=== PATIENT | male | born 1975 | race Caucasian/White ===

== ENCOUNTER → 2021-06-12 | Outpatient (CLI) | payer OTHER ==
[~2021-06-12] VITALS: Ht 193 cm; Wt 104.3 kg
[~2021-06-12] MED LIST: ADDERALL 20 MG20 MG PO; ADVAIR 100-501 EACH; BACTRIM DS TAB1 EACH PO; CILOXAN5 ML OP; MULTI VITAMIN1 EACH PO; NORCO 5-325 TA1 EACH PO; VENTOLIN HFA 1818 GM INH
--- NOTE | 2021-06-14 08:12 | P ---
[facility] [place] [address] PROCEDURE REPORT Name: KOLE ALTAMIRANO Room #: REG [facility]#: [id number] Admission: 06/12/21 Attend Phys: Osman Sharpe Discharge: Date of : 79 Report #: [id number] THIS REPORT FOR: cc: Loki Jorge MD, Neal A. MD McElhinney, Christian C. MD ~ cc: Loki Jorge MD DATE OF SERVICE: 06/12/2021 PROCEDURE PERFORMED: Upper endoscopy with biopsies. HISTORY OF PRESENT ILLNESS: The patient is a 45-year-old male with a history of gastroesophageal reflux disease, currently taking Prilosec on a daily basis. He also takes Excedrin most days. He does report intermittent heartburn. He denies any nausea, vomiting or dysphagia. Reason for endoscopy today is anemia. I do not have a copy of his recent labs. He denies any obvious bright red blood per rectum or melena. Plan is for EGD and colonoscopy today. DESCRIPTION OF PROCEDURE: The risks and benefits of the procedure were explained to the patient, those risks including but not limited to bleeding, perforation and the risk of sedation. He understood these risks and gave informed consent. Sedation was given using propofol per Anesthesia. Next, using a standard Olympus upper endoscope, the scope was placed in the patient's mouth and advanced under direct vision through the esophagus, stomach and into the second portion of the duodenum. The larynx was normal in appearance. The upper and mid esophagus were normal. In the distal esophagus, grade A erosive esophagitis was noted. 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 Biopsies were obtained. The gastric mucosa was normal in the fundus and body. A mild gastritis was noted in the antrum. No evidence of ulcerations or erosions. No evidence of bleeding throughout the exam today. Biopsies were obtained to rule out the possibility of H. pylori. The pylorus was normal and patent. The duodenal bulb, first and second portion were normal. Biopsies were obtained to rule out the possibility of celiac sprue. The scope was then withdrawn and the procedure terminated. The patient tolerated the procedure well. IMPRESSION: 1. Grade A erosive esophagitis. 2. 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 3. Mild gastritis. 4. Otherwise, normal upper endoscopy. RECOMMENDATIONS: 1. Await biopsy results. 2. Would recommend changing Prilosec daily to b.i.d. dosing. 3. We will proceed with colonoscopy next today. [address] [address] PROCEDURE REPORT Name: KOLE ALTAMIRANO Jimmy Room #: REG [facility] José Miguel#: [id number] Admission: 06/12/21 Attend Phys: Osman Sharpe Discharge: Date of : 79 Report #: [id number] Thank you for allowing me to participate in his care. <ELECTRONICALLY SIGNED> By: Osman Loja MD 06/14/21 0812 [id number] [id number] Osman Loja MD /nt
--- NOTE | 2021-06-14 08:12 | P ---
[facility] [place] [address] PROCEDURE REPORT Name: KOLE ALTAMIRANO Room #: REG [facility]#: [id number] Admission: 06/12/21 Attend Phys: Osman Sharpe Discharge: Date of : 79 Report #: [id number] THIS REPORT FOR: cc: Loki Jorge MD, Neal A. MD McElhinney, Christian C. MD ~ cc: Loki Jorge MD DATE OF SERVICE: 06/12/2021 PROCEDURE PERFORMED: Colonoscopy. HISTORY OF PRESENT ILLNESS: The patient is a 45-year-old male with a history of anemia. Denies any obvious bright red blood per rectum or melena. No previous history of colonoscopy. No family history of colon cancer or inflammatory bowel disease. DESCRIPTION OF PROCEDURE: The risks and benefits of the procedure were explained to the patient, those risks including but not limited to bleeding, perforation and the risk of sedation. He understood these risks and gave informed consent. Sedation was given using propofol per anesthesia. Next, a digital rectal exam was initially performed, which was normal. Next, using a standard Olympus colonoscope, the scope was placed in the patient's anus and advanced under direct vision to the cecum. The overall prep was excellent. The cecum and ileocecal valve were normal in appearance. Terminal ileum was intubated and normal in appearance. Ascending, transverse, descending and sigmoid colon were all normal. The rectal mucosa was normal. On retroflexion, small nonbleeding internal hemorrhoids were noted. The scope was then withdrawn and the procedure terminated. The patient tolerated the procedure well. IMPRESSION: 1. Small nonbleeding internal hemorrhoids. 2. Otherwise, normal colonoscopy. RECOMMENDATIONS: 1. Repeat colonoscopy in 10 years. 2. EGD today showing esophagitis despite being on daily Prilosec. Plan is to switch to b.i.d. therapy. If biopsies are negative and anemia persists, in the future consider Hemoccult testing of stools. Thank you for allowing me to participate in his care. <ELECTRONICALLY SIGNED> By: Osman Loja MD 06/14/21 0812 0804 [id number] Osman Loja MD /nt
--- NOTE | 2021-06-14 13:08 | PATH ---
[facility] [place] [address] PATHOLOGY RPT PROCEDURE Name: YASH ALTAMIRANO Room #: REG [facility].#: [id number] Admission: 06/12/21 Date of : 79 Discharge: Report #: [id number] Path Case #: [id number] [facility] Accession Number: [id number] . 01 Material submitted: . PART A: duodenum - DUODENAL BX R/O C SPRUE PART B: gastrointestinal site - GASTRIC BX R/O H. PYLORI PART C: esophagus - DISTAL ESOPAHGUS BX R/O BENEDICT'S. Modifiers: distal . 01 Clinical history: . ANEMIA . 02 Diagnosis: A. Duodenum, biopsy: - Small bowel mucosa with preserved villous morphology. - Negative for celiac disease, peptic duodenitis or Giardiasis. . B. Gastric, biopsy: - Gastric antral mucosa with features of mild reactive gastropathy. - An H. pylori immunohistochemical stain is negative for H. pylori-like organisms. - Negative for malignancy. . C. 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 - Negative for dysplasia or malignancy. (ANK:chuyita; 06/14/2021) S 06/14/2021 1143 Local . 02 Electronically signed: . Meghan Sheldon MD, Pathologist NPI- [id number] . 01 Gross description: . A. The specimen is received in formalin, labeled "Yash Altamirano, duodenal BX R/O-C-sprue" and consists of multiple richmond irregular tissues aggregating 0.7 x 0.6 x 0.1 cm which are filtered and submitted in toto in A1. . B. The specimen is received in formalin, labeled "Yash Altamirano, Gastric Bx" and the requisition further designates the specimen as "gastric BX R/O pylori". The specimen consists of 3 richmond irregular tissues aggregating 0.6 x 0.4 x 0.1 cm which are filtered and submitted in toto in B1. . C. The specimen is received in formalin, labeled "Yash Altamirano, [address] [address] PATHOLOGY RPT PROCEDURE Name: YASH ALTAMIRANO Room #: REG [facility] José Miguel#: [id number] Admission: 06/12/21 Date of : 79 Discharge: Report #: [id number] Path Case #: [id number] distal BX esophagus R/O Benedict" and consists of 3 richmond irregular tissues aggregating 0.4 x 0.3 x 0.1 cm which are filtered and submitted in toto in C1. (POINT LAY IRA; 06/13/2021) DKA/DKA 06/14/2021 1140 Local . 02 Pathologist provided ICD-10: K22.70, K20.90, D64.9 . 02 CPT . 616107, 403488, 629200, P79181 Specimen Comment: A courtesy copy of this report has been sent to [phone], [phone] Specimen Comment: [id number] Specimen Comment: Report sent to / DR DIAZ Performed at: [address], [place] [id number] MD Rasta Watson MD Phone: [phone] Performed at: [address] [id number] MD Meghan Sheldon MD Phone: [phone]
== END | disposition home or self-care (01) ==
LOC: GI 06:37
PROVIDERS: ATTEND Specialist
DX: D64.9 Anemia, unspecified (principal); R12 Heartburn; K31.9 Disease of stomach and duodenum, unspecified; K21.00 Gastro-esophageal reflux disease with esophagitis, without bleeding; K64.8 Other hemorrhoids; K29.70 Gastritis, unspecified, without bleeding; J45.909 Unspecified asthma, uncomplicated; Z98.890 Other specified postprocedural states; Z79.899 Other long term (current) drug therapy
CPT/HCPCS: 62110; 62900